=== PATIENT | female | born 1990 | race Caucasian/White ===

== ENCOUNTER 2017-04-19 11:26 | Emergency (ER) | payer MEDICAID ==
[~2017-04-19] VITALS: Ht 172.7 cm; Wt 81.8 kg
[~2017-04-19 11:26] MED LIST: DSS100 PO; FERR-89 PO; IBUP-2070 PO; PERCT PO; PREN1TAB80 PO
[2017-04-19 11:34] VITALS: BP 141/56
== END 2017-04-19 14:29 | disposition left against medical advice (07) ==
LOC: EMS 11:28
DX: M25.561 Pain in right knee (principal); Z53.21 Procedure and treatment not carried out due to patient leaving prior to being seen by health care provider